=== PATIENT | male | born 1945 | race Two or more races ===

== ENCOUNTER 2022-05-11 08:33 | Inpatient (IN) | payer OTHER ==
[~2022-05-11] VITALS: Ht 172.7 cm; Wt 68.0 kg
[2022-05-11] MEDS ORDERED: TOPROL XL50 M1 (08:46)
--- NOTE | 2022-05-11 08:47 | NUR ---
PACIENTE MASCULINO ALERTA Y ORIENTADO X3, REFIERE TENER FIEBRE, TEMBLOR EN TODO EL CUERPO Y DOLOR DE CUERPO.
--- NOTE | 2022-05-11 11:51 | NUR ---
SE ORIENTA PTE SOBRE EL TRATAMIENTO ORDENADO POR LA DRA SEPULVEDA PTE ALERTA Y ORIENTADO POR 3 SE RELIZAN MUESTRAS DE LABORTORIO PTE EN ESPERA DE CT
== END 2022-05-28 18:46 | disposition home or self-care (01) | DRG 867 ==
LOC: ER 08:33 → MEDJ 18:52 → SURH 18:52
PROVIDERS: ADMIT Internal Medicine; ATTEND Internal Medicine
PROC: BW21ZZZ Computerized Tomography (CT Scan) of Abdomen and Pelvis (ICD-10-PCS; principal; 2022-05-11)
PROC: B020ZZZ Computerized Tomography (CT Scan) of Brain (ICD-10-PCS; 2022-05-11)
PROC: B030ZZZ Magnetic Resonance Imaging (MRI) of Brain (ICD-10-PCS; 2022-05-12)
PROC: B246ZZZ Ultrasonography of Right and Left Heart (ICD-10-PCS; 2022-05-12)
PROC: B345ZZZ Ultrasonography of Bilateral Common Carotid Arteries (ICD-10-PCS; 2022-05-12)
PROC: B348ZZZ Ultrasonography of Bilateral Internal Carotid Arteries (ICD-10-PCS; 2022-05-12)
PROC: BW24ZZZ Computerized Tomography (CT Scan) of Chest and Abdomen (ICD-10-PCS; 2022-05-13)
PROC: BV49ZZZ Ultrasonography of Prostate and Seminal Vesicles (ICD-10-PCS; 2022-05-14)
PROC: 30233N1 Transfusion of Nonautologous Red Blood Cells into Peripheral Vein, Percutaneous Approach (ICD-10-PCS; 2022-05-16)
PROC: BW21Y0Z Computerized Tomography (CT Scan) of Abdomen and Pelvis using Other Contrast, Unenhanced and Enhanced (ICD-10-PCS; 2022-05-18)
PROC: BF37YZZ Magnetic Resonance Imaging (MRI) of Pancreas using Other Contrast (ICD-10-PCS; 2022-05-19)
PROC: 0T9B70Z Drainage of Bladder with Drainage Device, Via Natural or Artificial Opening (ICD-10-PCS; 2022-05-22)
DX: A27.9 Leptospirosis, unspecified (principal); K55.059 Acute (reversible) ischemia of intestine, part and extent unspecified; R65.10 Systemic inflammatory response syndrome (SIRS) of non-infectious origin without acute organ dysfunction; R78.81 Bacteremia; C94.6 Myelodysplastic disease, not elsewhere classified; D58.9 Hereditary hemolytic anemia, unspecified; N41.0 Acute prostatitis; D69.3 Immune thrombocytopenic purpura; K57.12 Diverticulitis of small intestine without perforation or abscess without bleeding; I67.89 Other cerebrovascular disease; N17.8 Other acute kidney failure; B96.89 Other specified bacterial agents as the cause of diseases classified elsewhere; D63.0 Anemia in neoplastic disease; I10 Essential (primary) hypertension; R42 Dizziness and giddiness; R97.20 Elevated prostate specific antigen [PSA]; R33.8 Other retention of urine; Z20.822 Contact with and (suspected) exposure to COVID-19
CPT/HCPCS: 70544

== ENCOUNTER 2022-10-02 09:24 | Outpatient (CLI) | payer OTHER ==
[~2022-10-02 09:24] MED LIST: TOPROL XL50 M1
== END 2022-10-02 09:26 | disposition home or self-care (01) ==
LOC: RAD 09:24
DX: J45.909 Unspecified asthma, uncomplicated (principal)